=== PATIENT | female | born 1990 | race Caucasian/White ===

== ENCOUNTER 2019-03-06 20:16 | Inpatient (IN) | payer MEDICAID, OTHER ==
[~2019-03-06] VITALS: Ht 154.9 cm; Wt 75.8 kg
[2019-03-06] MEDS ORDERED: SODIUM CITRATE/CITRIC ACID 15 ML UDC PO ONE (20:30)
[2019-03-06] MEDS ORDERED: LACTATED RINGERS 1,000 ML IVBOLUS ONE (20:30)
[2019-03-06] MEDS ORDERED: METOCLOPRAMIDE 5 MG/ML, 2ML IV ONE (20:30)
[2019-03-06] MEDS ORDERED: METOCLOPRAMIDE 5 MG/ML, 2ML ONE (20:55)
[2019-03-06] MEDS ORDERED: SODIUM CITRATE/CITRIC ACID 15 ML UDC ONE (20:55)
[2019-03-06] MEDS ORDERED: NEWBORN KIT ONE (20:55)
[2019-03-06] MEDS ORDERED: OXYTOCIN 30U/ 0.9% NaCL 500ML 500 ML ONE (20:56)
[2019-03-06 20:57] LABS: BASOPHILS # (AUTO) 0.05 x10^3/uL (0-0.1); BASOPHILS % (AUTO) 1 % (0-1); EOSINOPHILS # (AUTO) 0.21 x10^3/uL (0-0.4); EOSINOPHILS % (AUTO) 2 % (1-7); LYMPHOCYTES # (AUTO) 2.74 x10^3/uL (1-3.4); LYMPHOCYTES % (AUTO) 24 % (22-44); MD NO; MEAN CORPUSCULAR HEMOGLOBIN 32.9 pg (27.0-34.8); MEAN CORPUSCULAR HGB CONC 33.3 g/dL (32.4-35.8); MEAN CORPUSCULAR VOLUME 98.9 fL (80-100); MEAN PLATELET VOLUME 9.7 fL (7.4-10.4); MONOCYTES # (AUTO) 1.22 x10^3/uL (0.2-0.8); MONOCYTES % (AUTO) 11 % (2-9); NEUTROPHILS # (AUTO) 7.42 x10^3/uL (1.8-6.8); NEUTROPHILS % (AUTO) 64 % (42-75); PLATELET COUNT 205 x10^3/uL (130-400); RED BLOOD COUNT 4.08 x10^6/uL (3.82-5.3); RED CELL DISTRIBUTION WIDTH 13.6 % (9.6-15.2)
[2019-03-06] MEDS ORDERED: PREN1TAB60 PO (21:20)
[2019-03-06 21:22] VITALS: BP 119/66
[2019-03-06] MEDS: LACTATED RINGERS 1,000 ML IV SCH (21:22)
[2019-03-06] MEDS ORDERED: CEFAZOLIN 1,000 MG ONE (21:42)
[2019-03-06] MEDS ORDERED: OXYTOCIN 10 UNITS/ML, 1ML ONE ×2 (21:42→22:11)
[2019-03-06] MEDS ORDERED: EPINEPHRINE 1 MG/ML, 1ML ONE ×2 (21:42→21:44)
[2019-03-06] MEDS ORDERED: EPHEDRINE 50 MG/ML, 1ML ONE (21:42)
[2019-03-06 22:12] LABS: AMPHETAMINE SCREEN, URINE Negative (Negative); BARBITURATE SCREEN, URINE Negative (Negative); BENZODIAZEPINE SCREEN, URINE Negative (Negative); CANNABINOID SCREEN, URINE Negative (Negative); COCAINE SCREEN, URINE Negative (Negative); METHADONE SCREEN, URINE Negative (Negative); OPIATE SCREEN, URINE Negative (Negative)
[2019-03-06] MEDS ORDERED: KETOROLAC 30 MG/1 ML ONE (22:13)
[2019-03-07] MEDS: OXYTOCIN 30U/ 0.9% NaCL 500ML 500 ML IV SCH ×3 (00:30→19:30)
[2019-03-07] MEDS: LACTATED RINGERS 1,000 ML IV SCH ×10 (00:30→23:12)
[2019-03-07] MEDS ORDERED: FENTANYL PF 100 MCG/2ML ONE (00:40)
[2019-03-07] MEDS ORDERED: OXYcodone 5 MG/5 ML ORAL.SOL UDC ONE (00:41)
[2019-03-07] MEDS ORDERED: FENTANYL PF 100 MCG/2ML IV PRN (01:00)
[2019-03-07] MEDS ORDERED: OXYcodone 5 MG/5 ML ORAL.SOL UDC PO PRN (01:00)
[2019-03-07 01:20] VITALS: BP 111/77
[2019-03-07] MEDS ORDERED: DIPH,PERTUSS(ACELL),TET VAC/PF NC IM-VACC PRN (01:30)
[2019-03-07] MEDS ORDERED: ONDANSETRON 2MG/ML, 2ML IV PRN (01:30)
[2019-03-07] MEDS ORDERED: ACETAMINOPHEN 325 MG TABLET PO PRN (01:30)
[2019-03-07] MEDS ORDERED: CALCIUM CARBONATE 500 MG TAB.CHEW PO PRN (01:30)
[2019-03-07] MEDS ORDERED: MISOPROSTOL 200 MCG TABLET PR PRN (01:30)
[2019-03-07] MEDS: OXYcodone/APAP 5/325MG TABLET PO PRN ×3 (04:06→12:28)
[2019-03-07] MEDS: KETOROLAC 30 MG/1 ML IV SCH ×4 (04:42→22:39)
[2019-03-07 04:50] VITALS: BP 106/69
[2019-03-07 06:25] LABS: BASOPHILS # (AUTO) 0.04 x10^3/uL (0-0.1); BASOPHILS % (AUTO) 0 % (0-1); EOSINOPHILS # (AUTO) 0.09 x10^3/uL (0-0.4); EOSINOPHILS % (AUTO) 1 % (1-7); LYMPHOCYTES # (AUTO) 2.14 x10^3/uL (1-3.4); LYMPHOCYTES % (AUTO) 16 % (22-44); MD NO; MEAN CORPUSCULAR HEMOGLOBIN 32.5 pg (27.0-34.8); MEAN CORPUSCULAR HGB CONC 33.3 g/dL (32.4-35.8); MEAN CORPUSCULAR VOLUME 97.5 fL (80-100); MEAN PLATELET VOLUME 8.9 fL (7.4-10.4); MONOCYTES % (AUTO) 6 % (2-9); NEUTROPHILS # (AUTO) 10.16 x10^3/uL (1.8-6.8); NEUTROPHILS % (AUTO) 77 % (42-75); PLATELET COUNT 146 x10^3/uL (130-400); RED CELL DISTRIBUTION WIDTH 13.5 % (9.6-15.2)
[2019-03-07 07:25] VITALS: BP 104/68
[2019-03-07] MEDS: PRENATAL VIT/IRON/FA 1 EACH TABLET PO SCH (08:06)
[2019-03-07] MEDS: DOCUSATE 100 MG CAPSULE PO PRN (08:06)
[2019-03-07 12:35] VITALS: BP 102/65
[2019-03-07 16:18] VITALS: BP 109/68
[2019-03-07 20:30] VITALS: BP 106/72
[2019-03-08] MEDS: SIMETHICONE 80 MG CHEW TAB PO PRN ×2 (02:00→21:55)
[2019-03-08] MEDS: IBUPROFEN 800 MG TABLET PO PRN ×3 (04:28→21:55)
[2019-03-08] MEDS: OXYcodone/APAP 5/325MG TABLET PO PRN ×4 (04:48→21:56)
[2019-03-08] MEDS: KETOROLAC 30 MG/1 ML IV SCH (05:04)
[2019-03-08] MEDS: OXYTOCIN 30U/ 0.9% NaCL 500ML 500 ML IV SCH ×2 (05:23→17:22)
[2019-03-08] MEDS: LACTATED RINGERS 1,000 ML IV SCH ×6 (05:23→17:22)
[2019-03-08 08:30] VITALS: BP 97/66
[2019-03-08] MEDS: PRENATAL VIT/IRON/FA 1 EACH TABLET PO SCH (09:00)
[2019-03-08] MEDS: DOCUSATE 100 MG CAPSULE PO PRN ×2 (09:00→21:55)
[2019-03-08 19:30] VITALS: BP 93/58
[2019-03-09] MEDS: OXYcodone/APAP 5/325MG TABLET PO PRN (04:41)
[2019-03-09] MEDS: SIMETHICONE 80 MG CHEW TAB PO PRN (05:48)
[2019-03-09] MEDS: IBUPROFEN 800 MG TABLET PO PRN (05:48)
== END 2019-03-09 08:03 | DRG 788 ==
LOC: LDOP 20:16 → LDIP 21:03 → 2NW 03-07 01:05
PROVIDERS: ADMIT Obstetrics & Gynecology; ATTEND Obstetrics & Gynecology
PROC: 10D00Z1 Extraction of Products of Conception, Low, Open Approach (ICD-10-PCS; principal; 2019-03-06)
DX: O34.211 Maternal care for low transverse scar from previous cesarean delivery (principal); Z37.0 Single live birth; Z3A.38 38 weeks gestation of pregnancy; Z87.891 Personal history of nicotine dependence; O99.334 Smoking (tobacco) complicating childbirth; Z88.8 Allergy status to other drugs, medicaments and biological substances
CPT/HCPCS: 36415; 80307; 84112; 85025; 86850; 86900; G0378; J0171; J0690; J1885; J3010; J2590; J2765; J7120